=== PATIENT | male | born 1950 | race Caucasian/White ===

== ENCOUNTER 2017-11-23 15:38 | Observation (INO) ==
--- NOTE | 2017-11-23 16:22 | ED ---
HPI General Chief complaint: Skin/Abscess/Foreign Body Stated complaint: lft heel poss infection [id number] Time Seen by Provider: 11/23/17 16:01 Source: patient Mode of arrival: ambulatory Limitations: no limitations History of Present Illness HPI narrative: Patient presents with history of evaluation at ID with recommendation for hospitalization secondary to cellulitis and lymphangitis. Patient has swelling and inflammation to the heel/foot for 2-3 weeks. Generally good health with no significant medical problems. No chills or fever Related Data Home Medications Medication Instructions Recorded Confirmed amitriptyline 10 mg PO DAILY 11/23/17 11/23/17 aspirin [Aspirin Low Dose] 81 mg PO DAILY 11/23/17 11/23/17 cholecalciferol (vitamin D3) 2,000 unit PO DAILY 11/23/17 11/23/17 [Vitamin D3] diclofenac sodium 2 g TOPICAL QID 11/23/17 11/23/17 levothyroxine 75 mcg PO DAILY 11/23/17 11/23/17 lisinopril 20 mg PO DAILY 11/23/17 11/23/17 morphine 15 mg PO Q6H PRN 11/23/17 11/23/17 multivitamin 1 tab PO DAILY 11/23/17 11/23/17 omeprazole 20 mg PO DAILY 11/23/17 11/23/17 psyllium 1 tbsp PO BID 11/23/17 11/23/17 Allergies Allergy/AdvReac Type Severity Reaction Status Date / Time No Known Allergies Allergy Verified 11/23/17 15:45 Review of Systems ROS: all other systems reviewed are negative [facility] Medical History Medical History Hx of chronic lymphoid leukemia (Acute) Hx of primary hypertension (Acute) Surgical History Surgical History Previous back surgery (Acute) Family History Family History Other No pertinent family history Social History Social History Substance History: No History of Abuse Second Hand Smoke Exposure: No Smoking Status: Never smoker Tobacco Type: Cigarettes How Often Do You Have a Drink Containing Alcohol: Monthly or less Exam Narrative Exam Narrative: GENERAL: Alert oriented. No acute distress. SKIN: Focused skin assessment warm/dry. HEAD: Atraumatic. Normocephalic. EYES: Pupils equal and round. No scleral icterus. No injection or drainage. ENT: No nasal bleeding or discharge. Mucous membranes pink and moist. NECK: Trachea midline. No JVD. CARDIOVASCULAR: Regular rate and rhythm. Murmur appreciated. RESPIRATORY: No accessory muscle use. Clear to auscultation. Breath sounds equal bilaterally. GASTROINTESTINAL: Abdomen soft, non-tender, nondistended. Hepatic and splenic margins not palpable. Inguinal area: Tender inguinal node on left MUSCULOSKELETAL: No obvious deformities. No clubbing. No cyanosis. No edema. Lymphangitis and cellulitis to lateral aspect of foot NEUROLOGICAL: Awake and alert. No obvious cranial nerve deficits. Motor grossly within normal limits. Normal speech. PSYCHIATRIC: Appropriate mood and affect; insight and judgment normal. Procedures Abscess I/D Site: foot (sKIN: There is an indurated area in the cyst which measures about 4 cm in diameter. It is fluctuant but there is no pointing or drainage. There is a zone of inflammation around it but also has lymphangitis to the left inguinal node) Side (if applicable): left Sedation/analgesia: none Technique: incised with #11 blade Amount of fluid expressed (mL): 3 (Clear not purulent) Irrigation: No Packing used?: none Course Initial Documented Vital Signs Temperature 99.1 F 11/23/17 15:40 Pulse Rate 89 11/23/17 15:40 Respiratory Rate 16 11/23/17 15:40 Blood Pressure 124/58 L 11/23/17 15:40 Pulse Oximetry 97 11/23/17 15:40 Last Documented Vital Signs Temperature 99.1 F 11/23/17 15:40 Pulse Rate 88 11/23/17 17:45 Respiratory Rate 18 11/23/17 17:45 Blood Pressure 110/55 L 11/23/17 17:45 Pulse Oximetry 95 11/23/17 17:45 Medical Decision Making MDM Narrative Medical Screen Exam Complete: Yes Emergency Medical Condition: Yes Lab Data Result diagrams: 11/23/17 16:45 11/23/17 16:45 Lab Results 11/23/17 11/23/17 Range/Units 16:45 16:45 CBC w Diff Auto diff final WBC 12.2 H (4.0-11.0) th/mm3 RBC 3.53 L (4.50-5.90) mil/mm3 Hgb 10.9 L (13.0-17.0) gm/dL Hct 31.8 L (39.0-51.0) % MCV 90.0 (80.0-100.0) fL MCH 30.8 (27.0-34.0) pg MCHC 34.2 (32.0-36.0) % RDW 13.6 (11.6-17.2) % Plt Count 252 (150-450) th/mm3 MPV 7.9 (7.0-11.0) fL Neut % (Auto) 77.9 H (16.0-70.0) % Lymph % (Auto) 13.7 (9.0-44.0) % [place] % (Auto) 5.0 (0.0-8.0) % Eos % (Auto) 1.5 (0.0-4.0) % Baso % (Auto) 1.9 (0.0-2.0) % Neut # (Auto) 9.5 H (1.8-7.7) th/mm3 Lymph # (Auto) 1.7 (1.0-4.8) th/mm3 [place] # (Auto) 0.6 (0.0-0.9) th/mm3 Eos # (Auto) 0.2 (0.0-0.4) th/mm3 Baso # (Auto) 0.2 (0.0-0.2) th/mm3 WBC Differential . Differential Comment . Sodium 134 L (136-145) meq/L Potassium 3.7 (3.5-5.1) meq/L Chloride 100 (98-107) meq/L Carbon Dioxide 25.1 (21.0-32.0) meq/L Anion Gap 9 (5-15) meq/L BUN 20 H (7-18) mg/dL Creatinine 0.94 (0.60-1.30) mg/dL Estimated GFR 80 L (>89) mL/min Random Glucose 114 H (74-106) mg/dL Calcium 8.8 (8.5-10.1) mg/dL Discharge Plan Discharge Disposition Patient Disposition: 30 Still Patient Physicians Team ED Provider: Yovani Johnson Primary Care Provider: [facility] Attending Provider: Chung De La Cruz Discharge Interventions Interventions: ED Discharge Assessment Last Done: 11/23/17 18:46 Status ED Status: Left Department Discharge Information Discharge Date/Time: 11/23/17 18:46
[2017-11-23] MEDS ORDERED: Clindamycin 900 mg/NS Premix 900 MG/50 ML PIGGYBACK IV.SIG ONE (16:33)
[2017-11-23] MEDS ORDERED: Acetaminophen 325 MG Tablet PO PRN (16:52)
[2017-11-23] MEDS ORDERED: Bisacodyl 10 MG Supp RECTAL PRN (16:52)
[2017-11-23 17:01] LABS: Baso # (Auto) 0.2 th/mm3 (0.0-0.2); Baso % (Auto) 1.9 % (0.0-2.0); Eos # (Auto) 0.2 th/mm3 (0.0-0.4); Eos % (Auto) 1.5 % (0.0-4.0); Hematocrit 31.8 % (39.0-51.0); Hemoglobin 10.9 gm/dL (13.0-17.0); Lymph # (Auto) 1.7 th/mm3 (1.0-4.8); Lymph % (Auto) 13.7 % (9.0-44.0); Mean Corpuscular HGB Conc 34.2 % (32.0-36.0); Mean Corpuscular Hemoglobin 30.8 pg (27.0-34.0); Mean Platelet Volume 7.9 fL (7.0-11.0); Mono # (Auto) 0.6 th/mm3 (0.0-0.9); Neut # (Auto) 9.5 th/mm3 (1.8-7.7); Neut % (Auto) 77.9 % (16.0-70.0); Platelet Count 252 th/mm3 (150-450); Red Blood Count 3.53 mil/mm3 (4.50-5.90); Red Cell Distribution Width 13.6 % (11.6-17.2); White Blood Count 12.2 th/mm3 (4.0-11.0)
[2017-11-23] MEDS ORDERED: Vancomycin Consult Pharmacy OTHER PRN (17:07)
[2017-11-23 17:20] LABS: Potassium 3.7 meq/L (3.5-5.1)
[2017-11-23 17:22] LABS: Calcium 8.8 mg/dL (8.5-10.1)
[2017-11-23 17:23] LABS: Carbon Dioxide 25.1 meq/L (21.0-32.0)
[2017-11-23] MEDS ORDERED: Vancomycin Inj 2,000 MG in Sodium Chlor 0.9% Inj 500 ML IV.SIG ONE (18:00)
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
[2017-11-23] MEDS: Morphine Sulfate 15 MG IR Tablet PO PRN (20:32)
[2017-11-23] MEDS: Senna/Docusate Sodium 8.6/50 MG Tablet PO SCH (20:34)
[2017-11-24] MEDS: Morphine Sulfate 15 MG IR Tablet PO PRN ×4 (04:57→23:11)
[2017-11-24] MEDS: Levothyroxine 75 MCG Tablet PO SCH ×2 (04:57→05:01)
[2017-11-24 05:50] LABS: Baso # (Auto) 0.1 th/mm3 (0.0-0.2); Baso % (Auto) 0.6 % (0.0-2.0); Eos # (Auto) 0.2 th/mm3 (0.0-0.4); Eos % (Auto) 2.2 % (0.0-4.0); Hemoglobin 10.9 gm/dL (13.0-17.0); Lymph # (Auto) 1.6 th/mm3 (1.0-4.8); Lymph % (Auto) 18.8 % (9.0-44.0); Mean Corpuscular HGB Conc 32.9 % (32.0-36.0); Mean Corpuscular Hemoglobin 30.3 pg (27.0-34.0); Mean Corpuscular Volume 92.1 fL (80.0-100.0); Mono # (Auto) 0.5 th/mm3 (0.0-0.9); Mono % (Auto) 6.2 % (0.0-8.0); Neut % (Auto) 72.2 % (16.0-70.0); Platelet Count 226 th/mm3 (150-450); Red Blood Count 3.59 mil/mm3 (4.50-5.90); Red Cell Distribution Width 13.2 % (11.6-17.2); White Blood Count 8.4 th/mm3 (4.0-11.0)
[2017-11-24 05:56] LABS: Potassium 4.1 meq/L (3.5-5.1)
[2017-11-24 06:02] LABS: Carbon Dioxide 26.4 meq/L (21.0-32.0)
[2017-11-24 06:03] LABS: Calcium 8.3 mg/dL (8.5-10.1)
[2017-11-24] MEDS: Senna/Docusate Sodium 8.6/50 MG Tablet PO SCH ×2 (09:48→20:06)
[2017-11-24] MEDS: Amitriptyline 10 MG Tablet PO SCH (09:48)
[2017-11-24] MEDS: Lisinopril 20 MG Tablet PO SCH (09:49)
[2017-11-24] MEDS: Pantoprazole Sodium 20 MG DR Tablet PO SCH (09:49)
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
[2017-11-24] MEDS: Vancomycin Inj 1,800 MG in Sodium Chlor 0.9% Inj 500 ML IV.SIG SCH (15:26)
[2017-11-24] MEDS ORDERED: Gadobutrol PF 10 MMOL/10 ML Vial (for RAD) IV.SIG ONE (16:18)
--- NOTE | 2017-11-24 17:10 | MR ---
EXAM DATE: 11/24/2017 12:56 PM EDT AGE/SEX: 67 years / Male INDICATIONS: Osteomyelitis. Wound on lateral plantar side of left heel. CLINICAL DATA: This is the patient's initial encounter. Patient reports that signs and symptoms have been present for 2 weeks and indicates a pain score of 0/10. MEDICAL/SURGICAL HISTORY: Hypertension. Leukemia. . Back surgery, bone fusions. Prostate sx. COMPARISON: No prior exams available for comparison. TECHNIQUE: Multiplanar, multisequence MRI examination was performed without contrast and after th e intravenous administration of 9 ml Gadavist (gadobutrol) single exam dose. FINDINGS: Bones: Subchondral cysts are noted involving the lateral aspect of the talar dome. No marrow edema is noted to suggest osteomyelitis. No fracture or dislocation is noted. Joint Spaces: No joint effusion or loose bodies are seen. The joint spaces are preserved. Tendons: The flexor tendons are intact. Soft Tissues: Diffuse cellulitis involving the lateral ankle and foot is noted. No deep soft tissue a bscess is noted. Other: The plantar fascia is intact. No signal abnormalities are seen in the plantar musculature. Post Contrast: There are no abnormal areas of enhancement in the marrow, muscle or soft tissues on im ages obtained after intravenous administration of gadolinium. CONCLUSION: 1. No evidence of osteomyelitis. 2. Diffuse cellulitis involving the lateral ankle and foot. 3. No evidence of deep soft tissue abscess. 4. Subchondral cysts involving the lateral aspect of the talar dome. Electronically signed by: Ricki Wolff MD 11/24/2017 5:09 PM EDT
[2017-11-24 23:52] VITALS: TEMP 97.2
[2017-11-25] MEDS: Morphine Sulfate 15 MG IR Tablet PO PRN (05:17)
[2017-11-25] MEDS: Levothyroxine 75 MCG Tablet PO SCH (05:17)
[2017-11-25] MEDS: Vancomycin Inj 1,800 MG in Sodium Chlor 0.9% Inj 500 ML IV.SIG SCH (08:24)
[2017-11-25] MEDS: Lisinopril 20 MG Tablet PO SCH (08:28)
[2017-11-25] MEDS: Senna/Docusate Sodium 8.6/50 MG Tablet PO SCH (08:29)
[2017-11-25] MEDS: Amitriptyline 10 MG Tablet PO SCH (08:29)
[2017-11-25] MEDS: Pantoprazole Sodium 20 MG DR Tablet PO SCH (08:29)
[2017-11-25 08:36] VITALS: BP 132/62; PULSE 71; RESP 16; O2SAT 96
[2017-11-25 08:44] LABS: Glomerular Filtration Rate Greater Than 89 mL/min (>89)
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
[2017-11-25] MEDS ORDERED: levoFLOXacin 750 MG Tablet PO SCH (10:00)
[2017-11-26] MEDS ORDERED: Pharmacy Ordered Lab Info OTHER ONE (21:45)
== END 2017-11-25 11:19 | disposition home or self-care (01) ==
LOC: PHEFT 15:38 → PHEDA 15:38 → PH3 18:44
PROVIDERS: ADMIT Internal Medicine; ATTEND Internal Medicine